=== PATIENT | male | born 1960 | race Caucasian/White ===

== ENCOUNTER 2017-02-14 14:18 | Observation (INO) | payer OTHER ==
[~2017-02-14] VITALS: Ht 185.4 cm; Wt 90.9 kg
[~2017-02-14 14:18] MED LIST: AMLO5TAB22 PO; LISI-360 PO; METF500 PO
[2017-02-14 14:24] VITALS: BP 170/84; PULSE 66; RESP 24; TEMP 98.3; O2SAT 98
[2017-02-14 14:29] VITALS: BP 137/96; PULSE 70; RESP 18; TEMP 99; O2SAT 98
[2017-02-14 14:37] VITALS: O2SAT 95
--- NOTE | 2017-02-14 14:38 | PD ---
HPI Chief Complaint: Neuro Symptoms/ Deficits Time Seen by Provider: 14:38 Travel History International Travel<30 days: No Contact w/Intl Traveler<30days: No Traveled to known affect area: No History of Present Illness HPI 56-year-old male with a history of hypertension and diabetes presents to the emergency department for evaluation of dizziness, generalized weakness, vision loss and gait instability. Patient states that his symptoms began about 3 weeks ago with dizziness. States that his dizziness has been constant but worsening over the last 3 weeks. States that over the last 4-5 days he has had vision loss in the right eye, states that he sees only white and fuzzy outlines in the right eye. States that over the last 3 days he's had gait instability and loss of sensation all over. States he put his hand under very hot water several days ago and was unaware until his partner told him so. He denies any chest pain, shortness of breath, difficulty breathing, nausea, vomiting, diarrhea, abdominal pain, swelling the extremities. Denies alcohol use. States he smokes marijuana occasionally. Denies any other drug use. Denies any recent head trauma. No other complaints. PFSH Past Medical History Diabetes: Yes Patient Takes Glucophage: Yes Past Surgical History AICD: No Joint Replacement: No Oral Surgery: Yes (TONSILECTOMY) Pacemaker: No Social History Alcohol Use: No Tobacco Use: No Substance Use: No Allergies-Medications (Allergen,Severity, Reaction): Coded Allergies: No Known Allergies (Unverified , 02/14/17) Reported Meds & Prescriptions Reported Meds & Active Scripts Active Reported Metformin (Metformin HCl) 500 Mg Tab 500 Mg PO DAILY With a meal Lisinopril 10 Mg Tab 10 Mg PO DAILY Amlodipine (Amlodipine Besylate) 5 Mg Tab 5 Mg PO DAILY Review of Systems Except as stated in HPI: all other systems reviewed are Neg Physical Exam Narrative GENERAL: Well-nourished and well-developed pleasant patient in no acute distress. Appears anxious and is tearful. SKIN: Warm and dry. HEAD: Normocephalic and atraumatic. No facial droop. EYES: Vision decreased in right eye. No injection, drainage, or hyphema noted. PERRLA. EOMI. ENT: No nasal drainage noted. Oropharynx is clear. NECK: Supple and the trachea is midline. CARDIOVASCULAR: Regular rate and rhythm. RESPIRATORY: Breath sounds are equal bilaterally with no accessory muscle use, wheezing, rhonchi, or crackles. GASTROINTESTINAL: Abdomen is soft, non-tender, and nondistended. MUSCULOSKELETAL: No obvious deformities, swelling, cyanosis, or ecchymosis is present throughout the upper and lower extremities. Patient has full range of motion without any signs of neurovascular compromise. NEUROLOGICAL: Awake, alert, and oriented. Normal speech. Ataxia noted with abnormal heel to payne and finger to nose testing. Worse on the left than right. Cranial nerves are grossly intact. Data Data Last Documented VS Vital Signs Date Time Temp Pulse Resp B/P Pulse Ox O2 Delivery O2 Flow Rate FiO2 02/14/17 17:16 54 16 121/86 97 Room Air 02/14/17 14:29 99.0 Orders Electrocardiogram (02/14/17 14:32) Complete Blood Count With Diff (02/14/17 14:32) Comprehensive Metabolic Panel (02/14/17 14:32) Prothrombin Time / Inr (Pt) (02/14/17 14:32) Act Partial Throm Time (Ptt) (02/14/17 14:32) Thyroid Stimulating Hormone (02/14/17 14:32) Urinalysis - C+S If Indicated (02/14/17 14:32) Chest, Single Ap (02/14/17 14:32) Ct Brain W/O Iv Contrast(Rout) (02/14/17 14:32) Blood Glucose (02/14/17 14:32) Ecg Monitoring (02/14/17 14:32) Iv Access Insert/Monitor (02/14/17 14:32) Oximetry (02/14/17 14:32) Sodium Chloride 0.9% Flush (Ns Flush) (02/14/17 14:45) Mri Brain W/O Contrast (02/14/17 14:48) Diet 1800 Ada Cons Carb (02/14/17 Dinner) Diet Heart Healthy (02/14/17 Dinner) Vital Signs (Adult) FRANCISCO JAVIER.Q4H (02/14/17 17:54) Neuro Checks . ORDERED (02/14/17 17:54) ^ Fall Precautions (02/14/17 17:54) Consult Pt Eval & Treat (02/14/17 17:54) Blood Glucose Goal (Criteria) (02/14/17 17:54) Hypoglycemia 70 Mg/Dl Or < (02/14/17 17:54) Notify Dr: Other (02/14/17 17:54) Dextrose 50% In Ivan (Vial) Inj (D50w (Vi (02/14/17 18:00) Glucagon Inj (Glucagon Inj) (02/14/17 18:00) Insulin Aspart Supplemtl Scale (Novolog (02/14/17 21:00) Admit Order (Ed Use Only) (02/14/17 17:54) Labs Laboratory Tests Test 02/14/17 02/14/17 14:45 17:22 White Blood Count 8.3 TH/MM3 Red Blood Count 4.97 MIL/MM3 Hemoglobin 16.5 GM/DL Hematocrit 49.2 % Mean Corpuscular Volume 99.1 FL Mean Corpuscular Hemoglobin 33.3 PG Mean Corpuscular Hemoglobin 33.6 % Concent Red Cell Distribution Width 12.7 % Platelet Count 185 TH/MM3 Mean Platelet Volume 9.6 FL Neutrophils (%) (Auto) 65.9 % Lymphocytes (%) (Auto) 23.5 % Monocytes (%) (Auto) 8.2 % Eosinophils (%) (Auto) 1.7 % Basophils (%) (Auto) 0.7 % Neutrophils # (Auto) 5.4 TH/MM3 Lymphocytes # (Auto) 1.9 TH/MM3 Monocytes # (Auto) 0.7 TH/MM3 Eosinophils # (Auto) 0.1 TH/MM3 Basophils # (Auto) 0.1 TH/MM3 CBC Comment DIFF FINAL Differential Comment Prothrombin Time 10.4 SEC Prothromb Time International 0.9 RATIO Ratio Activated Partial 27.4 SEC Thromboplast Time Sodium Level 138 MEQ/L Potassium Level 4.2 MEQ/L Chloride Level 102 MEQ/L Carbon Dioxide Level 25.2 MEQ/L Anion Gap 11 MEQ/L Blood Urea Nitrogen 17 MG/DL Creatinine 1.27 MG/DL Estimat Glomerular Filtration 58 ML/MIN Rate Random Glucose 117 MG/DL Calcium Level 9.3 MG/DL Total Bilirubin 0.5 MG/DL Aspartate Amino Transf 23 U/L (AST/SGOT) Alanine Aminotransferase 29 U/L (ALT/SGPT) Alkaline Phosphatase 85 U/L Total Protein 8.0 GM/DL Albumin 4.3 GM/DL Thyroid Stimulating Hormone 2.260 uIU/ML 3rd Gen Urine Color YELLOW Urine Turbidity CLEAR Urine pH 5.0 Urine Specific [place] 1.022 Urine Protein NEG mg/dL Urine Glucose (UA) NEG mg/dL Urine Ketones NEG mg/dL Urine Occult Blood NEG Urine Nitrite NEG Urine Bilirubin NEG Urine Urobilinogen LESS THAN 2.0 MG/DL Urine Leukocyte Esterase NEG Urine WBC LESS THAN 1 /hpf Urine Mucus FEW /lpf Microscopic Urinalysis Comment CULT NOT INDICATED MDM Medical Decision Making Medical Screen Exam Complete: Yes Emergency Medical Condition: Yes Differential Diagnosis CVA versus TIA versus MS versus electrolyte abnormality versus conversion disorder versus other Narrative Course 56-year-old male presents to the emergency department for evaluation of dizziness, ataxia, right eye vision loss, paresthesias worsening over the last several weeks. Patient is afebrile, vital signs are stable. He does have ataxia and is reporting sensory loss all over. IV access is obtained, labs have been drawn and sent. Patient is placed on cardiac telemetry and pulse oximetry monitoring. Head CT has been ordered and is pending. EKG shows normal sinus rhythm with no acute ST elevations or depressions. CBC is unremarkable. CMP is unremarkable. Coags are unremarkable. Head CT is negative. Chest x-ray shows mild elevation of left hemidiaphragm but is otherwise unremarkable. MRI of the brain shows no findings to indicate acute cortical infarct identified. Scattered areas of increased T2 signal in the white matter consistent with mild microvascular ischemic demyelinating change. There's no findings on imaging or laboratory values to explain the patient's symptoms. He is dizzy and ataxic and therefore will be admitted to medicine service under observation or neurology consultation. Discussed this with the patient and family verbalize understanding and are in agreement with treatment plan. I discussed the case with my attending physician Dr. Shields who is aware of the patients history, physical examination findings, and treatment plan. Physician Communication Physician Communication I spoke with Dr. Gilbert [facility] who agrees to admit the patient to observation. Diagnosis Primary Impression: Dizziness Additional Impressions: Ataxia Paresthesia Admitting Information Admitting Physician Requests: Observation Nya Lozano Feb 14, 2017 14:38
[2017-02-14] MEDS ORDERED: SODIUM CHLORIDE 0.9% FLUSH 5 ML FLUSH IV FLUSH PRN (14:45)
[2017-02-14] MEDS ORDERED: METF500T PO (15:18)
[2017-02-14] MEDS ORDERED: LISI10TA3 PO (15:18)
[2017-02-14] MEDS ORDERED: AMLO5TAB2 PO (15:18)
[2017-02-14 15:37] LABS: AUTOMATED NEUTROPHIL # 5.4 TH/MM3 (1.8-7.7); BASOPHIL # 0.1 TH/MM3 (0-0.2); BASOPHIL % 0.7 % (0.0-2.0); EOSINOPHIL # 0.1 TH/MM3 (0-0.4); EOSINOPHIL % 1.7 % (0.0-4.0); HEMATOCRIT 49.2 % (39.0-51.0); HEMO FLAGS DIFF FINAL; LYMPH % 23.5 % (9.0-44.0); LYMPHOCYTE # 1.9 TH/MM3 (1.0-4.8); MEAN CELL VOLUME 99.1 FL (80.0-100.0); MEAN CORPUSCULAR HEMOGLOBIN 33.3 PG (27.0-34.0); MEAN CORPUSCULAR HGB CONC 33.6 % (32.0-36.0); MONO % 8.2 % (0.0-8.0); NEUT % 65.9 % (16.0-70.0); PLATELET COUNT 185 TH/MM3 (150-450); RED BLOOD COUNT 4.97 MIL/MM3 (4.50-5.90); RED CELL DISTRIBUTION WIDTH 12.7 % (11.6-17.2); WHITE BLOOD COUNT 8.3 TH/MM3 (4.0-11.0)
[2017-02-14 15:46] LABS: APTT (PATIENT) 27.4 SEC (24.3-30.1); INTERNATIONAL NORMALIZED RATIO 0.9 RATIO; PROTHROMBIN TIME - PATIENT 10.4 SEC (9.8-11.6)
[2017-02-14 16:10] LABS: ANION GAP 11 MEQ/L (5-15); AST (GOT) 23 U/L (15-37); BICARBONATE 25.2 MEQ/L (21.0-32.0); BLOOD UREA NITROGEN 17 MG/DL (7-18); CHLORIDE 102 MEQ/L (98-107); GLOMERULAR FILTRATION RATE 58 ML/MIN (>89); SODIUM (NA) 138 MEQ/L (136-145)
[2017-02-14 16:16] LABS: ALKALINE PHOSPHATASE 85 U/L (45-117); ALT (GPT) 29 U/L (12-78); TOTAL BILIRUBIN ADULT 0.5 MG/DL (0.2-1.0)
--- NOTE | 2017-02-14 16:27 | RADRPT ---
EXAM DATE/TIME: 02/14/2017 15:51 [facility] COMPARISON: No previous studies available for comparison. INDICATIONS : Dizziness X 3 weeks. RADIATION DOSE: 49.26 CTDIvol (mGy) MEDICAL HISTORY : Hypertension. Diabetes mellitus type 2. SURGICAL HISTORY : None. ENCOUNTER: Initial ACUITY: 3 weeks PAIN SCALE: 0/10 LOCATION: cranial TECHNIQUE: Multiple contiguous axial images were obtained of the head. Using automated exposure control and adj ustment of the mA and/or kV according to patient size, radiation dose was kept as low as reasonably a chievable to obtain optimal diagnostic quality images. FINDINGS: CEREBRUM: The ventricles are normal for age. No evidence of midline shift, mass lesion, hemorrhage or acute in farction. No extra-axial fluid collections are seen. POSTERIOR FOSSA: The cerebellum and brainstem are intact. The 4th ventricle is midline. The cerebellopontine angle i s unremarkable. EXTRACRANIAL: The visualized portion of the orbits is intact. SKULL: The calvaria is intact. No evidence of skull fracture. CONCLUSION: 1. No acute intracranial abnormality identified. Waldemar Proctor MD on February 14, 2017 at 16:24 Board Certified Radiologist. This report was verified electronically.
[2017-02-14 16:30] LABS: POTASSIUM 4.2 MEQ/L (3.5-5.1)
--- NOTE | 2017-02-14 16:46 | RADRPT ---
EXAM DATE/TIME: 02/14/2017 14:42 [facility] COMPARISON: No previous studies available for comparison. INDICATIONS : General weakness. MEDICAL HISTORY : Hypertension. Diabetes mellitus type II. SURGICAL HISTORY : None. ENCOUNTER: Initial ACUITY: 2 weeks PAIN SCORE: 0/10 LOCATION: Bilateral chest FINDINGS: A single view of the chest demonstrates the lungs to be symmetrically aerated without evidence of mas s, infiltrate or effusion. Mild elevation of the left hemidiaphragm. The cardiomediastinal contours a re unremarkable. Osseous structures are intact. CONCLUSION: 1. Mild elevation of the left hemidiaphragm. 2. Otherwise, no acute cardiopulmonary disease. Denny Brock MD on February 14, 2017 at 16:43 Board Certified Radiologist. This report was verified electronically.
[2017-02-14 17:16] VITALS: BP 121/86; PULSE 54; RESP 16; O2SAT 97
--- NOTE | 2017-02-14 17:18 | RADRPT ---
EXAM DATE/TIME: 02/14/2017 16:06 [facility] COMPARISON: No previous studies available for comparison. INDICATIONS : CVA. Generalized weakness and unsteady gait. MEDICAL HISTORY : Reynauds disease. SURGICAL HISTORY : Ankle surgery. ENCOUNTER: Initial ACUITY: 2 day PAIN SCORE: 3/10 LOCATION: head TECHNIQUE: Multiplanar, multisequence MRI of the brain was performed without contrast. FINDINGS: CEREBRUM: The ventricles are normal for age. No evidence of midline shift, mass lesion, hemorrhage or acute in farction. No extraaxial fluid collections are seen. The pituitary gland and suprasellar cistern are normal in configuration. WHITE MATTER: No significant signal abnormalities are seen in the white matter. POSTERIOR FOSSA: The cerebellum and brainstem are intact. The 4th ventricle is midline. The cerebellopontine angle is unremarkable. The cerebellar tonsils are normal in position. DIFFUSION IMAGING: No focal areas of restricted diffusion are seen. No evidence of acute infarction. EXTRACRANIAL: The visualized portions of the orbits and paranasal sinuses are unremarkable. CONCLUSION: 1. No findings to indicate acute cortical infarct identified. 2. Scattered areas of increased T2 signal in the white matter consistent with mild microvascular isch emic demyelinative change. Waldemar Proctor MD on February 14, 2017 at 17:13 Board Certified Radiologist. This report was verified electronically.
[2017-02-14 17:50] LABS: BLOOD, URINE NEG (NEG); COMMENT (UR) CULT NOT INDICATED; CULTURE IF INDICATED CULT NOT INDICATED; GLUCOSE,URINE NEG (NEG); KETONE, URINE NEG (NEG); MUCUS URINE FEW /lpf (OCC); NITRITE,URINE NEG (NEG); URINE COLOR YELLOW (YELLW/STRAW)
[2017-02-14] MEDS ORDERED: GLUCAGON 1 MG/ML VIAL OTHER PRN (18:00)
[2017-02-14] MEDS ORDERED: DEXTROSE 50% IN WATER 50 ML VIAL(D50) IV PRN (18:00)
[2017-02-14 20:31] VITALS: BP 118/70; PULSE 56; RESP 16; TEMP 98.2; O2SAT 94
[2017-02-14] MEDS: INSULIN ASPART SUPPLEMENTAL SCALE SQ SCH (22:23)
[2017-02-15] VITALS: BP 124/68; PULSE 67; RESP 18; TEMP 98.1; O2SAT 97
[2017-02-15 04:00] VITALS: BP 122/74; PULSE 74; RESP 18; TEMP 98; O2SAT 98
--- NOTE | 2017-02-15 04:33 | HHI.HP ---
HPI Service [facility] Primary Care Physician NEVILLE Deras Admission Diagnosis Dizziness, Ataxia, Paresthesias Diagnoses: Chief Complaint: paresthesias, ataxia, anosmia, ageusia Travel History International Travel<30 Days: No Contact w/Intl Traveler <30 Da: No Traveled to Known Affected Are: No History of Present Illness Written by Darya Jimenez, acting as scribe for Dr. Woodard on 02/15/17 at 04:32. Loss of sensation "over all body" - feels numb, loss of smell, loss of taste, 50 pound weight loss in 35 days, sense of imbalance, lethargy - slept for one day, tinnitus, speech feels "heavy", urination is difficult to start and duration of urination is short - unable to feel urination, denies diarrhea or constipation. Last BM 02/14/17 in a.m. Denies pain, dysphagia Blood glucose was 70 at PCPs office and she sent patient to ER PCP: NEVILLE Deras Denies any recent medication changes . Review of Systems Except as stated in HPI: all other systems reviewed are Neg Past Family Social History Past Medical History T2DM Hypertension Denies . Past Surgical History right ankle repair s/p fracture left ankle - "nodules" removed right retinal reattachment repair 06/2015 . Reported Medications Reported Meds & Active Scripts Active Reported Metformin (Metformin HCl) 500 Mg Tab 500 Mg PO DAILY With a meal Lisinopril 10 Mg Tab 10 Mg PO DAILY Amlodipine (Amlodipine Besylate) 5 Mg Tab 5 Mg PO DAILY . Allergies: Coded Allergies: No Known Allergies (Unverified , 02/14/17) Active Ordered Medications Current Medications IV Flush (NS Flush) 2 ml UNSCH PRN IV FLUSH FLUSH AFTER USING IV ACCESS; Start 02/14/17 at 14:45 Dextrose (D50w (Vial) Inj) 50 ml UNSCH PRN IV HYPOGLYCEMIA-SEE COMMENTS; Start 02/14/17 at 18:00 Glucagon (Glucagon Inj) 1 mg UNSCH PRN OTHER HYPOGLYCEMIA-SEE COMMENTS; Start 02/14/17 at 18:00 Insulin Aspart (NovoLOG SUPPLEMENTAL SCALE) 1 ACHS SLIDING SCALE SQ Last administered on 02/14/17t 22:23; Start 02/14/17 at 21:00 . Family History Sister age 42 - born with a "hole in her heart" Mother cervical CA Uncles from complications related to Parkinson's disease . Social History Tobacco: denies Alcohol: denies Illicit drugs: denies . Physical Exam Vital Signs Vital Signs Date Time Temp Pulse Resp B/P Pulse Ox O2 Delivery O2 Flow Rate FiO2 02/14/17 20:31 98.2 56 16 118/70 94 02/14/17 17:16 54 16 121/86 97 Room Air 02/14/17 14:37 95 Room Air 02/14/17 14:29 99.0 70 18 137/96 98 02/14/17 14:24 98.3 66 24 170/84 98 Room Air Physical Exam GENERAL: This is a well-nourished, well-developed patient, in no apparent distress. Flat affect. SKIN: No rashes, ecchymoses or lesions. Cool and dry. HEAD: Atraumatic. Normocephalic. EYES: No scleral icterus. No injection or drainage. ENT: Nose without bleeding, purulent drainage. NECK: Trachea midline. No JVD or lymphadenopathy. CARDIOVASCULAR: Regular rate and rhythm without murmurs, gallops, or rubs. RESPIRATORY: Clear to auscultation. Breath sounds equal bilaterally. No wheezes , rales, or rhonchi. GASTROINTESTINAL: Abdomen soft, non-tender, nondistended. No guarding. MUSCULOSKELETAL: Extremities without clubbing, cyanosis, or edema. No calf tenderness. NEUROLOGICAL: Awake and alert. Generalized weakness in all extremities2+-3/5. Masked faces. Speech is slow. . Laboratory Laboratory Tests Test 02/14/17 02/14/17 14:45 17:22 White Blood Count 8.3 Red Blood Count 4.97 Hemoglobin 16.5 Hematocrit 49.2 Mean Corpuscular Volume 99.1 Mean Corpuscular Hemoglobin 33.3 Mean Corpuscular Hemoglobin 33.6 Concent Red Cell Distribution Width 12.7 Platelet Count 185 Mean Platelet Volume 9.6 Neutrophils (%) (Auto) 65.9 Lymphocytes (%) (Auto) 23.5 Monocytes (%) (Auto) 8.2 Eosinophils (%) (Auto) 1.7 Basophils (%) (Auto) 0.7 Neutrophils # (Auto) 5.4 Lymphocytes # (Auto) 1.9 Monocytes # (Auto) 0.7 Eosinophils # (Auto) 0.1 Basophils # (Auto) 0.1 CBC Comment DIFF FINAL Differential Comment Prothrombin Time 10.4 Prothromb Time International 0.9 Ratio Activated Partial 27.4 Thromboplast Time Sodium Level 138 Potassium Level 4.2 Chloride Level 102 Carbon Dioxide Level 25.2 Anion Gap 11 Blood Urea Nitrogen 17 Creatinine 1.27 Estimat Glomerular Filtration 58 Rate Random Glucose 117 Calcium Level 9.3 Total Bilirubin 0.5 Aspartate Amino Transf 23 (AST/SGOT) Alanine Aminotransferase 29 (ALT/SGPT) Alkaline Phosphatase 85 Total Protein 8.0 Albumin 4.3 Thyroid Stimulating Hormone 2.260 3rd Gen Urine Color YELLOW Urine Turbidity CLEAR Urine pH 5.0 Urine Specific [place] 1.022 Urine Protein NEG Urine Glucose (UA) NEG Urine Ketones NEG Urine Occult Blood NEG Urine Nitrite NEG Urine Bilirubin NEG Urine Urobilinogen LESS THAN 2.0 Urine Leukocyte Esterase NEG Urine WBC LESS THAN 1 Urine Mucus FEW Microscopic Urinalysis Comment CULT NOT INDICATED Result Diagram: 02/14/17 1445 02/14/17 1445 Imaging Last Impressions Brain MRI 02/14/17 1448 Signed Impressions: Service Date/Time: Tuesday, February 14, 2017 16:06 - CONCLUSION: 1. No findings to indicate acute cortical infarct identified. 2. Scattered areas of increased T2 signal in the white matter consistent with mild microvascular ischemic demyelinative change. Waldemar Proctor MD Head CT 02/14/17 1432 Signed Impressions: Service Date/Time: Tuesday, February 14, 2017 15:51 - CONCLUSION: 1. No acute intracranial abnormality identified. Waldemar Proctor MD Chest X-Ray 02/14/17 1432 Signed Impressions: Service Date/Time: Tuesday, February 14, 2017 14:42 - CONCLUSION: 1. Mild elevation of the left hemidiaphragm. 2. Otherwise, no acute cardiopulmonary disease. Denny Brock MD . Assessment and Plan Problem List: (1) Ageusia ICD Code: R43.2 Status: Acute (2) Anosmia ICD Code: R43.0 Status: Acute (3) Paresthesia ICD Code: R20.2 Status: Acute (4) Ataxia ICD Code: R27.0 Status: Acute (5) Abnormal brain MRI ICD Code: R90.89 Status: Acute (6) Type 2 diabetes mellitus ICD Code: E11.9 Status: Chronic Assessment and Plan Mr. Mcclendon is a 56 year-old male with a 35 day period of progressively worsening neurological deficits who is admitted for neurological evaluation. Neurological deficits: ageusia, anosmia, paresthesias, ataxia with abnormal brain MRI - Consult neurology - appreciate assistance - Brain MRI shows scattered areas of increased T2 signal in the white matter consistent with mild microvascular ischemic demyelinative change - Neuro checks q4h T2DM - Accu-checks AC and HS with low dose Novolog sliding scale coverage - hypoglycemia protocol - hold metformin - monitor trends in blood glucose readings and adjust treatments as indicated DVT prophylaxis - SCDs and TEDs . Discussed Condition With ER physician, RN, and patient . Darya Jimenez Feb 15, 2017 04:33 Darya Jimenez Feb 15, 2017 04:33
[2017-02-15] MEDS: INSULIN ASPART SUPPLEMENTAL SCALE SQ SCH ×4 (07:00→21:00)
[2017-02-15 10:12] LABS: AMPHETAMINE, URINE NEG (NEG); BARBITURATES, URINE NEG (NEG); COCAINE, URINE NEG (NEG)
[2017-02-15 10:45] VITALS: BP_SYST 108; BP_SYST 114; BP_SYST 117; BP_DIAS 73; BP_DIAS 75; BP_DIAS 78; PULSE 68; RESP 18; TEMP 97.8; O2SAT 95
--- NOTE | 2017-02-15 10:49 | MB ---
cc: ABBEY HARTMAN DATE OF CONSULTATION 02/15/2017 REASON FOR CONSULTATION This is a 56-year-old right-handed man with a history of hypertension, non-insulin dependent diabetes, hypercholesterolemia. He does not take an aspirin a day. No recent changes in his meds. He states over the last month he has lost 50 pounds and he feels like he has had some vertigo and dizziness for the last two weeks. He feels like he cannot feel his hands or feet and he has had some tinnitus. He has had some depression. No chest pain or palpitations. No major headache. He feels like his thinking is off. No pain in the legs. Feels like he is generally weak. He had lost his regular job a few months ago. He has been working in sales for [employer]. SOCIAL HISTORY Not a smoker or a drinker, lives with his girlfriend. FAMILY HISTORY Positive for cancer, negative for seizure or stroke. Positive for some heart problems in a sister, Parkinson's season in an uncle. MEDICATIONS He does not take an aspirin a day. He is on: 1. Amlodipine 2. Lisinopril 3. Metformin PAST MEDICAL HISTORY He has a past medical history of: 1. Right retinal reattachment repair 2014 2. Status post fracture right ankle. ALLERGIES NO KNOWN DRUG ALLERGIES. PHYSICAL EXAM On exam afebrile, 74, 18, 122/74. NECK: There are no carotid or vertebral bruits. HEART: Regular rhythm. I did not detect a murmur. NEUROLOGIC: Pupils are equal. Visual villanueva are full. Extraocular intact without nystagmus. Face is symmetric with normal sensation. Tongue was midline. There was no drift. He had normal strength in the upper and lower extremities bilaterally including deltoid, triceps, finger extensors FTI, APB, iliopsoas, hamstring, quadriceps, tibialis anterior, foot inversion/eversion, toe extensors and flexors. He is able to stand on his toes well. DTRs are 2+ symmetric throughout and normal on the knee jerks bilaterally. There is no ankle clonus. Tone is normal throughout. Toes are downgoing bilaterally. Pinprick is absent to the knees bilaterally. Vibratory sense is intact, but diminished in the toes, but intact in the hands and head. Pinprick is intact in the hands in the median, ulnar and radial nerve distribution bilaterally, intact in the face bilaterally. He is not ataxic on [id number] or [id number]. Gait is steady. Hallpike maneuver negative bilaterally. He seems a little bit nervous. He tells me it feels like his mind is not working well, but he knew the year, the month, did not know the day of the week. Calculations are intact. Speech is fluent. He is not aphasic. LABORATORY DATA CBC is normal. Basic metabolic profile normal. Glucose 117, LFTs, albumin TSH, UA, coag's normal. MRI of the brain is normal. No infarction noted. Chest x-ray was negative. CT scan of the brain normal. Mastoids I thought looked fine on the MRI. IMPRESSION He does have a likely diabetic neuropathy with numbness below the knees bilaterally. Otherwise, I thought he looked well neurologically. He may have a mild peripheral vestibulopathy. We will have them check orthostatics here, check some additional blood work. He is trying to get patient assistance here. He has no insurance. I note he did have a bit of an escutcheon on his abdomen consistent with neuropathy also. At times we do see in diabetes sudden weight loss and such things as a diabetic polyradiculopathy, however, it does not really sound like he has that. He has had no pain in his legs, i.e. no diabetic amyotrophy is noted on exam. What I have recommended is to check a standing blood pressure, check some additional blood work, overall I thought he looked fairly well neurologically. He would benefit for an EMG outpatient and do a urine drug screen. He does have some depression. How much that could be in involved in this is unclear. I am going to start him on an antidepressants. He feels like he is about a 4/10 depressed and feels like he is in a little bit of a fog cognitively. We can also check an EEG on him. As far as his weight loss goes, a CT of the chest and abdomen could be considered. I would defer to the med team on that and make sure he does not have any underlying cancer. Overall, I though he looked fairly well neurologically. We will also check an MRA of his carotids with the history of vertigo to make sure there is no vertebrobasilar disease and an MRI of his C-spine with his complaints of feeling numb from the neck down, although I think it is probably unlikely there is any cervical myelopathy going on. His exam looked more just at the straight forehead diabetic neuropathy. MD ETHAN Rodgers/RAUL /8:16 AM /10:29 AM
[2017-02-15] MEDS ORDERED: GADODIAMIDE PF 287 MG/ML 20 ML VIAL (for RAD MRI) IV ONE (11:27)
[2017-02-15] MEDS: ESCITALOPRAM OXALATE 10 MG TAB PO SCH (11:32)
--- NOTE | 2017-02-15 12:51 | RADRPT ---
EXAM DATE/TIME: 02/15/2017 10:55 [facility] COMPARISON: No previous studies available for comparison. INDICATIONS : Myelopathy. MEDICAL HISTORY : Hypertension. Diabetes mellitus type 2. Reynauds disease. SURGICAL HISTORY : Ankle. ENCOUNTER: Subsequent ACUITY: 1 day PAIN SCORE: 0/10 LOCATION: Neck. TECHNIQUE: Multiplanar, multisequence MRI examination of the cervical spine was performed. FINDINGS: Alignment: Craniocervical and cervical vertebral body alignment are intact. Osseous structures and facet joints: Vertebral body height is well-maintained. There is no evidence of bone marrow edema or compression de formity. Mild facet arthropathy is identified in the lower cervical spine at C6-7 and C7-T1. Intervertebral disc spaces: Degenerative disc disease ranging from mild to moderate in severity is noted. C2-3 and C3-4: Unremarkable. C4-5: Mild degenerative disc disease with minimal posterior disc osteophyte complex. There is no sign ificant epidural or neural foraminal encroachment. C5-6: Moderate degenerative disc disease with broad-based disc osteophyte complex. There is mild ante rior neural effacement which abuts and slightly effaces the anterior surface of the spinal cord. Mode rate right foraminal encroachment is noted. C6-7: Moderate degenerative disc disease with mild broad-based disc osteophyte complex. There is no e vidence of significant epidural mass effect of foraminal encroachment. C7-T1: Mild degenerative disease with small central disc bulge Neurologic structures: Cervical spinal cord is normal in signal intensity and caliber. There is no evidence of significant n erve root compression. CONCLUSION: Degenerative disc disease with moderate changes at C5-6 and C6-7 as described. No acute bony abnormalities or soft extrusion. Normal appearing spinal cord without significant compression. No evidence of significant nerve root compression. Silvio Bazan MD on February 15, 2017 at 12:40 Board Certified Radiologist. This report was verified electronically.
--- NOTE | 2017-02-15 12:55 | RADRPT ---
EXAM DATE/TIME: 02/15/2017 10:55 [facility] COMPARISON: MRI BRAIN W/O CONTRAST, February 14, 2017, 16:06. INDICATIONS : Stroke. Dizziness, unbalanced and confusion. CONTRAST: 20 cc Omniscan (gadodiamide) IV MEDICAL HISTORY : Hypertension. Diabetes mellitus type 2. Reynauds disease. SURGICAL HISTORY : Ankle. ENCOUNTER: Subsequent ACUITY: 1 day PAIN SCORE: 0/10 LOCATION: Head. Percent stenosis is calculated using the diameter of the stenotic region over the diameter of the nor mal distal internal carotid artery. TECHNIQUE: Bolus infused MRA of the extracranial circulation was performed using a neurovascular coil. Post pro cessing was performed including rotating subvolume maximum intensity projections of each carotid ranjan ry, rotating full volume maximum intensity projections of both carotid arteries, sagittal and coronal sliding thin slab reformations of each carotid artery, and left oblique sliding thin slab reformatio n through the aortic arch to include the origin of the arch branch vessels. FINDINGS: AORTIC ARCH: There is a three vessel origin of the great vessels from the aorta. No evidence of ostial narrowing. RIGHT CAROTID: The common carotid artery is intact. The carotid bulb has a normal configuration without ulceration or narrowing. The internal carotid artery lumen is smooth without stenosis. The external carotid ar freddy is intact. LEFT CAROTID: The common carotid artery is intact. The carotid bulb has a normal configuration without ulceration or narrowing. The internal carotid artery lumen is smooth without stenosis. The external carotid ar freddy is intact. VERTEBRALS: The left vertebral is considerably smaller than the right. No stenotic lesions are identified. CONCLUSION: 1. Normal examination. Waldemar Proctor MD on February 15, 2017 at 12:52 Board Certified Radiologist. This report was verified electronically.
[2017-02-15 13:52] LABS: ALT (GPT) 27 U/L (12-78); RHEUMATOID FACTOR TRIGGER LESS THAN 10.0 IU/ML (0.0-14.9)
[2017-02-15 14:18] LABS: AST (GOT) 13 U/L (15-37); LDL CHOLESTEROL 187 MG/DL (0-99); TOTAL PROTEIN SPE 8.2 GM/DL (6.0-7.6)
[2017-02-15 14:20] LABS: CREATINE KINASE 54 U/L (39-308)
--- NOTE | 2017-02-15 15:21 | EKG ---
Date Performed: 02/14/2017 Time Performed: 14:41:49 PTAGE: 56 years EKG: Sinus rhythm NORMAL ECG Compared to prior tracing no significant change PREVIOUS TRACING : 06/03/2015 09.46 DOCTOR: Jean-Pierre Dela Cruz Interpretating Date/Time 02/15/2017 15:21:03
[2017-02-15 16:36] VITALS: BP 121/78; PULSE 60; RESP 18; TEMP 97.7; O2SAT 95
[2017-02-15 16:39] VITALS: BP_SYST 105; BP_SYST 108; BP_SYST 121; BP_DIAS 71; BP_DIAS 74; BP_DIAS 78
--- NOTE | 2017-02-15 17:09 | MG ---
cc: VJ AKINS M.D. Lab No: [id number] Date: Age: 56 Sex: M Race: REFERRING: Kathleen. ROOM: [facility]. With photic stimulation. Awake drowsy study. MRI shows scattered areas of increased T2 signal in the white matter consistent with mild microvascular change admitted for loss of sensation, whole body feels numb, loss of smell and taste, 50-pound weight loss, imbalance. Lexapro only medication. DESCRIPTION OF THE RECORDING: The patient has a background rhythm of 9 Hz, 20-40 microvolts. Fairly symmetrical background. Quite a bit of eye movement artifact. Photic stimulation does elicit a mild posterior driving response. EKG does look to be sinus most of the time. Occasional PVC. IMPRESSION: Overall normal-appearing EEG without any epileptiform features in the recording. Clinical correlation. MD ABY Velasquez/MCKAY /2:57 PM /5:08 PM
[2017-02-15] MEDS ORDERED: ATORVASTATIN 80 MG TAB PO SCH (21:00)
[2017-02-15 21:34] VITALS: BP_SYST 123; BP_SYST 138; BP_DIAS 78; BP_DIAS 83; BP_DIAS 84; PULSE 56; RESP 18; TEMP 98.2; O2SAT 96
[2017-02-16 04:06] VITALS: BP 125/70; PULSE 60; RESP 18; TEMP 97.9; O2SAT 96
[2017-02-16] MEDS: INSULIN ASPART SUPPLEMENTAL SCALE SQ SCH ×2 (06:47→12:00)
[2017-02-16 07:48] VITALS: BP_SYST 121; BP_SYST 122; BP_SYST 124; BP_DIAS 73; BP_DIAS 74; BP_DIAS 84; PULSE 61; RESP 18; TEMP 98; O2SAT 95
[2017-02-16 08:02] LABS: AUTOMATED NEUTROPHIL # 6.5 TH/MM3 (1.8-7.7); BASOPHIL # 0.1 TH/MM3 (0-0.2); BASOPHIL % 0.6 % (0.0-2.0); EOSINOPHIL # 0.2 TH/MM3 (0-0.4); EOSINOPHIL % 1.8 % (0.0-4.0); HEMATOCRIT 46.5 % (39.0-51.0); HEMO FLAGS DIFF FINAL; LYMPH % 17.9 % (9.0-44.0); LYMPHOCYTE # 1.6 TH/MM3 (1.0-4.8); MEAN CELL VOLUME 96.6 FL (80.0-100.0); MEAN CORPUSCULAR HEMOGLOBIN 33.5 PG (27.0-34.0); MEAN CORPUSCULAR HGB CONC 34.6 % (32.0-36.0); MONO % 7.7 % (0.0-8.0); PLATELET COUNT 173 TH/MM3 (150-450); RED BLOOD COUNT 4.81 MIL/MM3 (4.50-5.90); RED CELL DISTRIBUTION WIDTH 12.6 % (11.6-17.2)
[2017-02-16 08:26] LABS: BICARBONATE 30.8 MEQ/L (21.0-32.0); POTASSIUM 4.1 MEQ/L (3.5-5.1)
--- NOTE | 2017-02-16 08:47 | HHI.PR ---
Subjective Remarks Follow-up for multiple neuro complaints. The patient states that he feels numb all over. He complains of dizziness like the room is spinning and unsteadiness. He complains of dizziness both with lying still and with standing. The patient is currently unable to ambulate well. He denies any pain. He reports a 50 pound weight loss from 250 down to 200 over the past month. He reports normal intake and normal stools. 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 He is happy that neurological workup so far is been relatively unremarkable, and is willing to do anything to feel better. He would like to do malignancy workup with weight loss. He is agreeable to psychiatric evaluation as well. The patient does use marijuana prior to bedtime for sleep. Objective Vitals Vital Signs Date Time Temp Pulse Resp B/P Pulse Ox O2 Delivery O2 Flow Rate FiO2 02/16/17 07:48 98.0 61 18 122/73 95 121/74 124/84 02/16/17 04:06 97.9 60 18 125/70 96 02/15/17 21:34 98.2 56 18 123/78 96 123/84 138/83 02/15/17 16:39 121/78 105/71 108/74 02/15/17 16:36 97.7 60 18 121/78 95 02/15/17 10:45 97.8 68 18 117/73 95 108/78 114/75 Result Diagram: 02/16/17 0739 02/16/17 0739 Imaging Last Impressions Neck Magnetic Resonance Angiography 02/15/17 0820 Signed Impressions: Service Date/Time: February 10:55 - CONCLUSION: 1. Normal examination. Waldemar Proctor MD Cervical Spine MRI 02/15/17 0820 Signed Impressions: Service Date/Time: February 10:55 - CONCLUSION: Degenerative disc disease with moderate changes at C5-6 and C6-7 as described. No acute bony abnormalities or soft extrusion. Normal appearing spinal cord without significant compression. No evidence of significant nerve root compression. Silvio Bazan MD Brain MRI 02/14/17 1448 Signed Impressions: Service Date/Time: Tuesday, February 14, 2017 16:06 - CONCLUSION: 1. No findings to indicate acute cortical infarct identified. 2. Scattered areas of increased T2 signal in the white matter consistent with mild microvascular ischemic demyelinative change. Waldemar Proctor MD Head CT 02/14/17 1432 Signed Impressions: Service Date/Time: Tuesday, February 14, 2017 15:51 - CONCLUSION: 1. No acute intracranial abnormality identified. Waldemar Proctor MD Chest X-Ray 02/14/172 Signed Impressions: Service Date/Time: Tuesday, February 14, 2017 14:42 - CONCLUSION: 1. Mild elevation of the left hemidiaphragm. 2. Otherwise, no acute cardiopulmonary disease. Denny Brock MD Objective Remarks GENERAL: Well-developed well-nourished. In no acute distress. SKIN: Warm and dry. No lesions noted. HEENT: Normocephalic. Pupils equal and round. Mucous membranes pink and moist. CARDIOVASCULAR: Regular rate and rhythm. No murmur appreciated. RESPIRATORY: No accessory muscle use. Clear to auscultation. Breath sounds equal bilaterally. GASTROINTESTINAL: Abdomen soft, non-tender, nondistended. Bowel sounds x4. MUSCULOSKELETAL: No obvious deformities. No clubbing or cyanosis. No edema. NEUROLOGICAL: Awake and alert. Moves upper and lower extremities spontaneously well when not being tested, although poor effort on strength testing. Normal speech. PSYCHIATRIC: Anxious mood and overwhelmed affect; insight and judgment normal. A/P Problem List: (1) [place] ICD Code: R43.2 Status: Acute (2) Anosmia ICD Code: R43.0 Status: Acute (3) Paresthesia ICD Code: R20.2 Status: Acute (4) Ataxia ICD Code: R27.0 Status: Acute (5) Abnormal brain MRI ICD Code: R90.89 Status: Acute (6) Type 2 diabetes mellitus ICD Code: E11.9 Status: Chronic Assessment and Plan 56-year-old male with past medical history of DM and HTN who presented for multiple neurologic complaints and weight loss Multiple neurologic deficits: Including paresthesias, dizziness, ataxia and gait imbalance. Possibly secondary to somatization with feelings of being overwhelmed and recent life stressors. Reviewed: Brain MRI with no acute process. Neck MRA normal. C-spine MRI with moderate degenerative changes with no significant spinal cord or nerve root compression. Afebrile with no leukocytosis. Non-orthostatic. EEG with essentially normal appearance. 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 Possibly secondary to depression, although will rule out malignancy. Check tumor markers and CT chest, abdomen, and pelvis. Diabetes mellitus: Well controlled. Metformin on hold currently. Monitor Accu- Cheks. SSI coverage. Hypertension: Currently well controlled off of amlodipine and lisinopril, continue to hold. Monitor. Hyperlipidemia: Lipid panel reviewed with elevated triglycerides and LDL. Started on statin. DVT prophylaxis: SCDs Discharge Planning Discharge planning when patient is able to better ambulate safely. 1415 patient reassessed, he reports he has been ambulating much better today unassisted. Tolerating diet. Clear by neurology and psychiatry for discharge. Regarding weight loss, malignancy workup including tumor markers and CT chest , abdomen, and pelvis have been negative. Discussed with Dr. Barger, no further inpatient workup needed at this time. Recommended patient follow-up with PCP for continued management of symptoms, and patient is agreeable. Discharge home today. Dayton Khanna Feb 16, 2017 08:47
--- NOTE | 2017-02-16 08:59 | HHI.PR ---
Objective Vital Signs Date Time Temp Pulse Resp B/P Pulse Ox O2 Delivery O2 Flow Rate FiO2 02/16/17 07:48 98.0 61 18 122/73 95 121/74 124/84 02/16/17 04:06 97.9 60 18 125/70 96 02/15/17 21:34 98.2 56 18 123/78 96 123/84 138/83 02/15/17 16:39 121/78 105/71 108/74 02/15/17 16:36 97.7 60 18 121/78 95 02/15/17 10:45 97.8 68 18 117/73 95 108/78 114/75 Result Diagram: 02/16/17 0739 02/16/17 0739 Objective Remarks no nystag dizzy sitting up walks well although a little off balance with gait but independent Assessment and Plan Assessment and Plan imp likley periph vestibulopathy depression diabetic neuropathy PT ok to dc neurowise mri brain mra c spine mri all ok on statin eeg and bp stand nl Chemo Wang MD Feb 16, 2017 08:59
[2017-02-16] MEDS ORDERED: DIATRIZOATE MEGLUM/DIATRIZOATE SOD 9 ML CUP PO ONE (09:00)
[2017-02-16] MEDS: ESCITALOPRAM OXALATE 10 MG TAB PO SCH (09:01)
[2017-02-16 11:30] VITALS: BP_SYST 114; BP_SYST 116; BP_SYST 133; BP_DIAS 80; BP_DIAS 81; BP_DIAS 82; PULSE 56; RESP 18; TEMP 98.1; O2SAT 97
[2017-02-16] MEDS ORDERED: IOHEXOL 350 MG/ML 10 ML VIAL (for RAD DIAG) IV ONE (11:56)
--- NOTE | 2017-02-16 12:18 | RADRPT ---
EXAM DATE/TIME: 02/16/2017 11:51 [facility] COMPARISON: No previous studies available for comparison. INDICATIONS : Unexplained weight loss. Weakness unsteady gait. IV CONTRAST: 98 cc Omnipaque 350 (iohexol) IV ; Cumulative dose for multiple exams. RADIATION DOSE: 16.93 CTDIvol (mGy) ; Combined studies - Thorax/Abdomen/Pelvis MEDICAL HISTORY : Diabetes mellitus type 2. Hypertension. SURGICAL HISTORY : None. ENCOUNTER: Initial ACUITY: 1 month PAIN SCALE: 0/10 LOCATION: Bilateral abdomen TECHNIQUE: Volumetric scanning of the chest was performed. Using automated exposure control and adjustment of t he mA and/or kV according to patient size, radiation dose was kept as low as reasonably achievable to obtain optimal diagnostic quality images. FINDINGS: LUNGS: There is no consolidation or pneumothorax. No concerning pulmonary nodule is visualized. PLEURA: There is no pleural thickening or pleural effusion. MEDIASTINUM: The heart and great vessels demonstrate no acute abnormality. There is no mediastinal or hilar lymph adenopathy. AXILLAE: Within normal limits. No lymphadenopathy. SKELETAL: Within normal limits for patient age. MISCELLANEOUS: The visualized upper abdominal organs demonstrate no acute abnormality. CONCLUSION: Negative for an acute process.. Giovany Proctor MD FACR on February 16, 2017 at 12:12 Board Certified Radiologist. This report was verified electronically.
--- NOTE | 2017-02-16 12:22 | RADRPT ---
EXAM DATE/TIME: 02/16/2017 11:51 [facility] COMPARISON: No previous studies available for comparison. INDICATIONS : Weight loss, 50 lbs in 30 days IV CONTRAST: 98 cc Omnipaque 350 (iohexol) IV ORAL CONTRAST: Prescribed oral contrast ingested. RADIATION DOSE: 17.29 CTDIvol (mGy) ; Combined studies - Thorax/Abdomen/Pelvis MEDICAL HISTORY : Hypertension. Diabetes mellitus type 2. SURGICAL HISTORY : None. ENCOUNTER: Initial ACUITY: 1 month PAIN SCALE: 0/10 LOCATION: Abdominal/pelvis TECHNIQUE: Volumetric scanning of the abdomen and pelvis was performed. Using automated exposure control and ad justment of the mA and/or kV according to patient size, radiation dose was kept as low as reasonably achievable to obtain optimal diagnostic quality images. FINDINGS: Lung bases are clear. Liver, spleen, pancreas, adrenals and kidneys are unremarkable. Region of the cecum and terminal ileum are normal. There is no ascites or adenopathy appreciated. There is scattered diverticula in the sigmoid colon without diverticulitis. There is no ascites or a denopathy appreciated. Review of bone windows reveals only degenerative changes. CONCLUSION: Negative for an acute process. Giovany Proctor MD FACR on February 16, 2017 at 12:16 Board Certified Radiologist. This report was verified electronically.
--- NOTE | 2017-02-16 12:50 | PD.CONS ---
Provisional Diagnosis Admission Date Feb 14, 2017 at 17:55 [place]. Adjustment disorder with anxiety History of Present Illness Service Psychiatry Consult Requested By Long Primary Care Physician NEVILLE Deras HPI 56-year-old male without psychiatric history, referred for consultation due to a concern of somatizations disorder. Patient does not fit the profile of an individual with somatizations disorder. This 56-year-old man has no history of psychiatric complaints or treatment. He does continue to have very specific complaints about physical problems he is having with vision, ambulation, balance , etc. He denies symptoms of depression but is anxious about his current condition. He denies any suicidal or homicidal ideation, plan or intent. His cognition is completely intact and he has no psychotic symptoms. He is verbally katie for safety. He would simply like a thorough physical evaluation because he to finds his physical symptoms to be bizarre and disturbing. Review of Systems Eyes: COMPLAINS OF: Blurred vision Ears, nose, mouth, throat: COMPLAINS OF: Hearing loss Neurologic: COMPLAINS OF: Headache, Localized weakness, Paresthesias Past Family Social History Coded Allergies: No Known Allergies (Unverified , 02/14/17) Reported Medications Metformin 500 Mg [id number] Mg PO DAILY #30 TAB Ref 0 With a meal 02/14/17 Lisinopril 10 Mg Tab10 Mg PO DAILY #30 TAB Ref 0 02/14/17 Amlodipine 5 Mg Tab5 Mg PO DAILY #30 TAB Ref 0 02/14/17 Current Medications Medications (Trade) Dose Ordered Sig/[place] Route Start Time Stop Time Status Last Admin (NS Flush) 2 ml UNSCH PRN IV FLUSH 02/14/17 14:45 (D50w (Vial) Inj) 50 ml UNSCH PRN IV 02/14/17 18:00 (Glucagon Inj) 1 mg UNSCH PRN OTHER 02/14/17 18:00 (Lexapro) 10 mg DAILY PO 02/15/17 09:00 02/16/17 09:01 (Lipitor) 80 mg HS PO 02/15/17 21:00 02/15/17 21:16 Family History Positive for anxiety. Social History Lives in his own home. Denies a history of alcoholism or substance abuse. Has the support of a significant other. Patient's Strengths (min. 2) Verbal and has access to healthcare. Physical Exam Vital Signs Vital Signs Date Time Temp Pulse Resp B/P Pulse Ox O2 Delivery O2 Flow Rate FiO2 02/16/17 11:30 98.1 56 18 133/81 97 116/80 114/82 02/14/17 17:16 Room Air Mental Status Examination Speech: Unremarkable Orientation: x3 Memory: Unremarkable Thought Process: Organized, Goal Directed Thought Content: Unremarkable Hallucination Type: None Attention and Concentration: Good Suicidal Ideation: No Previous Suicide Attempts: No Homicidal Ideation: No Previous Homicide Attempts: No Insight: Fair Judgment: WNL Affect: Anxious Mood: Anxious Motor Activity: Normal gait Assessment & Plan Problem List: (1) Adjustment disorder with anxiety ICD Code: F43.22 Assessment & Plan Estimated LOS: days as stated above, the patient does not fit the profile of the somatizations disorder. His age and lack of psychiatric history or multiple physical complaints over time does not fit the criteria for somatization disorder. Patient appears legitimately concerned about his bizarre symptoms. Unfortunately this physician does not see a role for psychiatry to play at this time. Marco Braxton MD Feb 16, 2017 12:50
[2017-02-16 13:31] LABS: ANA SCREEN NEG (NEG)
[2017-02-16] MEDS ORDERED: LOVA20TA PO (14:24)
[2017-02-16] MEDS ORDERED: ESCI10TA PO (14:24)
--- NOTE | 2017-02-16 14:27 | HHI.DS ---
Discharge Summary Admission Date Feb 14, 2017 at 17:55 Discharge Date: Feb 16, 2017 Admitting Diagnosis Dizziness, Ataxia, Paresthesias (1) Ageusia ICD Code: R43.2 Diagnosis: Principal (2) Anosmia ICD Code: R43.0 (3) Paresthesia ICD Code: R20.2 Diagnosis: Principal (4) Ataxia ICD Code: R27.0 Diagnosis: Principal (5) Abnormal brain MRI ICD Code: R90.89 Diagnosis: Secondary (6) Type 2 diabetes mellitus ICD Code: E11.9 Diagnosis: Secondary Procedures none Brief History - From Admission Loss of sensation "over all body" - feels numb, loss of smell, loss of taste, 50 pound weight loss in 35 days, sense of imbalance, lethargy - slept for one day, tinnitus, speech feels "heavy", urination is difficult to start and duration of urination is short - unable to feel urination, denies diarrhea or constipation. Last BM 02/14/17 in a.m. Denies pain, dysphagia Blood glucose was 70 at PCPs office and she sent patient to ER PCP: NEVILLE Deras Denies any recent medication changes . CBC/BMP: 02/16/17 0739 02/16/17 0739 Significant Findings Laboratory Tests Test 02/14/17 02/14/17 02/15/17 02/16/17 14:45 17:22 12:36 07:39 Monocytes (%) (Auto) 8.2 % (0.0-8.0) Estimat Glomerular Filtration 58 ML/MIN (>89) 64 ML/MIN (>89) Rate Random Glucose 117 MG/DL (74-106) Urine Mucus FEW /lpf (OCC) Urine Cannabinoids Screen POS (NEG) Aspartate Amino Transf 13 U/L (15-37) (AST/SGOT) Total Protein 8.2 GM/DL (6.0-7.6) Triglycerides Level 225 MG/DL (42-150) Cholesterol Level 272 MG/DL (120-200) LDL Cholesterol 187 MG/DL (0-99) Vitamin B12 Level 1069 PG/ML (193-986) Folate GREATER THAN 20.0 NG/ML (3.1-17.5) Neutrophils (%) (Auto) 72.0 % (16.0-70.0) Imaging Last Impressions Chest CT 02/16/17 0000 Signed Impressions: Service Date/Time: Thursday, February 16, 2017 11:51 - CONCLUSION: Negative for an acute process.. Giovany Proctor MD FACR Neck Magnetic Resonance Angiography 02/15/17 0820 Signed Impressions: Service Date/Time: February 10:55 - CONCLUSION: 1. Normal examination. Waldemar Proctor MD Cervical Spine MRI 02/15/17 08 Signed Impressions: Service Date/Time: February 10:55 - CONCLUSION: Degenerative disc disease with moderate changes at C5-6 and C6-7 as described. No acute bony abnormalities or soft extrusion. Normal appearing spinal cord without significant compression. No evidence of significant nerve root compression. Silvio Bazan MD Brain MRI 02/14/17 1448 Signed Impressions: Service Date/Time: Tuesday, February 14, 2017 16:06 - CONCLUSION: 1. No findings to indicate acute cortical infarct identified. 2. Scattered areas of increased T2 signal in the white matter consistent with mild microvascular ischemic demyelinative change. Waldemar Proctor MD Head CT 02/14/17 1432 Signed Impressions: Service Date/Time: Tuesday, February 14, 2017 15:51 - CONCLUSION: 1. No acute intracranial abnormality identified. Waldemar Proctor MD Chest X-Ray 02/14/17 1432 Signed Impressions: Service Date/Time: Tuesday, February 14, 2017 14:42 - CONCLUSION: 1. Mild elevation of the left hemidiaphragm. 2. Otherwise, no acute cardiopulmonary disease. Denny Brock MD PE at Discharge GENERAL: Well-developed well-nourished. In no acute distress. SKIN: Warm and dry. No lesions noted. HEENT: Normocephalic. Pupils equal and round. Mucous membranes pink and moist. CARDIOVASCULAR: Regular rate and rhythm. No murmur appreciated. RESPIRATORY: No accessory muscle use. Clear to auscultation. Breath sounds equal bilaterally. GASTROINTESTINAL: Abdomen soft, non-tender, nondistended. Bowel sounds x4. MUSCULOSKELETAL: No obvious deformities. No clubbing or cyanosis. No edema. NEUROLOGICAL: Awake and alert. Moves upper and lower extremities spontaneously well when not being tested, although poor effort on strength testing. Normal speech. PSYCHIATRIC: Anxious mood and overwhelmed affect; insight and judgment normal. Hospital Course 56-year-old male with past medical history of DM and HTN who presented for multiple neurologic complaints and weight loss Multiple neurologic deficits: Including paresthesias, dizziness, ataxia and gait imbalance. Possibly secondary to somatization with feelings of being overwhelmed and recent life stressors. Reviewed: Brain MRI with no acute process. Neck MRA normal. C-spine MRI with moderate degenerative changes with no significant spinal cord or nerve root compression. Afebrile with no leukocytosis. Non-orthostatic. EEG with essentially normal appearance. 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 Cleared for DC by neuro. -PT consulted, continue daily PT. -Consult psychiatry, cleared patient for DC. Weight loss: Patient reports 50 pound weight loss over the last month. Possibly secondary to depression, although will rule out malignancy. Check tumor markers and CT chest, abdomen, and pelvis. Diabetes mellitus: Well controlled. Metformin on hold currently. Monitor Accu- Cheks. SSI coverage. Hypertension: Currently well controlled off of amlodipine and lisinopril, continue to hold. Monitor. Hyperlipidemia: Lipid panel reviewed with elevated triglycerides and LDL. Started on statin. DVT prophylaxis: SCDs Discharge Planning Patient is improving, he is noted ambulating. Cleared by neurology and psych for DC. Patient to follow up as OP with PCP and consultants. Pt Condition on Discharge: Stable Discharge Disposition: Discharge Home Discharge Time: > 30 minutes Discharge Instructions DIET: Follow Instructions for: Heart Healthy Diet, Diabetic Diet Activities you can perform: Regular-No Restrictions Follow up Referrals: Neurology - 2 Weeks with Chemo Wang MD PCP Follow-up - 1 Week New Medications: Lovastatin (Lovastatin) 20 Mg Tab 20 MG PO HS Cholesterol Management #30 Ref 0 TAB Escitalopram (Escitalopram) 10 Mg Tab 10 MG PO DAILY Depression Control #30 TAB Continued Medications: Metformin (Metformin) 500 Mg Tab 500 MG PO DAILY With a meal Blood Sugar Management #30 Ref 0 TAB Discontinued Medications: Amlodipine (Amlodipine) 5 Mg Tab 5 MG PO DAILY Blood Pressure Management #30 Ref 0 TAB Lisinopril (Lisinopril) 10 Mg Tab 10 MG PO DAILY #30 Ref 0 TAB Marguerite Barger MD Feb 16, 2017 14:27
[2017-02-16 14:48] LABS: RAPID PLASMA REAGIN SCREEN NON-REACTIVE (NON-REACTVE)
[2017-02-20 22:06] LABS: ALPHA 1 GLOBULIN 0.21 GM/DL (0.11-0.29); ALPHA 2 GLOBULIN 0.75 GM/DL (0.22-1.00); BETA GLOBULINS (SPE) 0.84 GM/DL (0.53-1.03)
[2017-02-21 16:15] LABS: VITAMIN B6 15.2 ng/mL (2.1-21.7)
== END 2017-02-16 18:16 | disposition home or self-care (01) ==
LOC: NEPC 14:18 → NEDA 17:55 → NEPGCP 19:09
PROVIDERS: ADMIT Hospitalist; ATTEND Hospitalist
DX: R42 Dizziness and giddiness (principal); R43.2 Parageusia; R43.0 Anosmia; R20.9 Unspecified disturbances of skin sensation; E11.40 Type 2 diabetes mellitus with diabetic neuropathy, unspecified; E78.5 Hyperlipidemia, unspecified; I10 Essential (primary) hypertension; F32.9 Major depressive disorder, single episode, unspecified; F43.22 Adjustment disorder with anxiety; R90.89 Other abnormal findings on diagnostic imaging of central nervous system; R63.4 Abnormal weight loss; Z68.26 Body mass index [BMI] 26.0-26.9, adult; Z79.84 Long term (current) use of oral hypoglycemic drugs
CPT/HCPCS: 70450; 70548; 70551; 71010; 71260; 72141; 74177; 80048; 80053; 80061; 80307; 81001; 82105; 82140; 82378; 82550; 82607; 82746; 82948; 83921; 84165; 84207; 84425; 84443; 84450; 84460; 85025; 85610; 85652; 85730; 86038; 86140; 86301; 86430; 86592; 93005; 95819; 96372; 97162; 99285; A9579; G0378; G8987; G8988; J1815; Q9963; Q9967

== ENCOUNTER 2017-11-24 17:14 | Emergency (ER) | payer OTHER ==
[~2017-11-24 17:14] MED LIST changes: -AMLO5TAB22 PO; +ESCI10TA PO; -LISI-360 PO; +LOVA20TA PO; -METF500 PO; +METF500T PO
[2017-11-24 17:26] VITALS: BP 114/64; PULSE 97; RESP 16; TEMP 98.9; O2SAT 93
[2017-11-24 18:13] VITALS: BP 123/72; PULSE 93; RESP 19; O2SAT 94
--- NOTE | 2017-11-24 18:41 | PD ---
HPI Chief Complaint: Alcohol/Drug Intoxication Time Seen by Provider: 17:52 Travel History International Travel<30 days: No Contact w/Intl Traveler<30days: No Traveled to known affect area: No History of Present Illness HPI This patient is brought in by police. His a hospice today and he was drinking excessively in grief. Neighbors called police because of a disturbance. He admits to drinking heavily. He denies drug use or intentional overdose. He denies feeling suicidal. He's been drinking a lot in the last year. Severity is moderate. No alleviating factors. He agrees to psychiatric screening. Symptoms exacerbated by his 's . PFSH Past Medical History Depression: Yes Diabetes: Yes Patient Takes Glucophage: Yes Hypertension: Yes Tetanus Vaccination: Unknown Influenza Vaccination: No Past Surgical History AICD: No Joint Replacement: No Oral Surgery: Yes (TONSILECTOMY) Pacemaker: No Tonsillectomy: Yes Social History Alcohol Use: Yes (1/2 BOTTLE VODKA ) Tobacco Use: No Substance Use: No Allergies-Medications (Allergen,Severity, Reaction): Coded Allergies: No Known Allergies (Unverified Adverse Reaction, Unknown, 11/24/17) Reported Meds & Prescriptions Reported Meds & Active Scripts Active Escitalopram (Escitalopram Oxalate) 10 Mg Tab 10 Mg PO DAILY Lovastatin 20 Mg Tab 20 Mg PO HS Reported Metformin (Metformin HCl) 500 Mg Tab 500 Mg PO DAILY With a meal Review of Systems General / Constitutional: No: Fever Eyes: No: Visual changes HENT: No: Headaches Cardiovascular: No: Chest Pain or Discomfort Respiratory: No: Shortness of Breath Gastrointestinal: No: Abdominal Pain Genitourinary: No: Dysuria Musculoskeletal: No: Pain Skin: No Rash Neurologic: No: Weakness Psychiatric: Positive: Depression, Substance Abuse Endocrine: No: Polydipsia Hematologic/Lymphatic: No: Easy Bruising Physical Exam Narrative GENERAL: Well-nourished, well-developed patient in no apparent distress. SKIN: Focused skin assessment reveals no rash and nodules. Skin is Warm and dry. HEAD: Atraumatic. Normocephalic. EYES: Pupils equal and round. No scleral icterus. No injection or drainage. ENT: No nasal bleeding or discharge. Mucous membranes pink and moist. NECK: Trachea midline. No JVD. CARDIOVASCULAR: Regular rate and rhythm. No murmur appreciated. RESPIRATORY: No accessory muscle use. Clear to auscultation. Breath sounds equal bilaterally. GASTROINTESTINAL: Abdomen soft, non-tender, nondistended. Hepatic and splenic margins not palpable. MUSCULOSKELETAL: No obvious deformities. No clubbing. No cyanosis. No edema. NEUROLOGICAL: Awake and alert. No obvious cranial nerve deficits. Motor grossly within normal limits. Normal speech. PSYCHIATRIC: Depressed mood and flat affect; insight and judgment impaired at present . Data Data Last Documented VS Vital Signs Date Time Temp Pulse Resp B/P (MAP) Pulse Ox O2 Delivery O2 Flow Rate FiO2 11/24/17 18:13 93 19 123/72 (89) 94 Room Air 11/24/17 17:26 98.9 Orders Orders Complete Blood Count With Diff (11/24/17 18:31) Comprehensive Metabolic Panel (11/24/17 18:31) Thyroid Stimulating Hormone (11/24/17 18:31) Iv Access Insert/Monitor (11/24/17 18:31) Psych Screen (11/24/17 18:31) Drug Screen, Random Urine (11/24/17 18:31) Alcohol (Ethanol) (11/24/17 18:31) Labs Laboratory Tests Test 11/24/17 18:35 White Blood Count 6.8 TH/MM3 Red Blood Count 3.95 MIL/MM3 Hemoglobin 15.8 GM/DL Hematocrit 42.7 % Mean Corpuscular Volume 108.2 FL Mean Corpuscular Hemoglobin 39.9 PG Mean Corpuscular Hemoglobin Concent 36.9 % Red Cell Distribution Width 12.6 % Platelet Count 157 TH/MM3 Mean Platelet Volume 8.8 FL Neutrophils (%) (Auto) 59.2 % Lymphocytes (%) (Auto) 27.2 % Monocytes (%) (Auto) 11.7 % Eosinophils (%) (Auto) 1.1 % Basophils (%) (Auto) 0.8 % Neutrophils # (Auto) 4.0 TH/MM3 Lymphocytes # (Auto) 1.9 TH/MM3 Monocytes # (Auto) 0.8 TH/MM3 Eosinophils # (Auto) 0.1 TH/MM3 Basophils # (Auto) 0.1 TH/MM3 CBC Comment DIFF FINAL Differential Comment Blood Urea Nitrogen 18 MG/DL Creatinine 1.53 MG/DL Random Glucose 131 MG/DL Total Protein 7.8 GM/DL Albumin 3.7 GM/DL Calcium Level 9.1 MG/DL Alkaline Phosphatase 107 U/L Aspartate Amino Transf (AST/SGOT) 248 U/L Alanine Aminotransferase (ALT/SGPT) 187 U/L Total Bilirubin 0.4 MG/DL Sodium Level 142 MEQ/L Potassium Level 3.5 MEQ/L Chloride Level 104 MEQ/L Carbon Dioxide Level 25.3 MEQ/L Anion Gap 13 MEQ/L Estimat Glomerular Filtration Rate 47 ML/MIN Thyroid Stimulating Hormone 3rd Gen 1.520 uIU/ML Ethyl Alcohol Level 322 MG/DL [facility] Medical Decision Making Medical Screen Exam Complete: Yes Emergency Medical Condition: Yes Medical Record Reviewed: Yes Differential Diagnosis Alcohol intoxication, depression, adjustment disorder with depressed mood, persistent depressive disorder Narrative Course I have reviewed the patient's electronic medical record. Ordered a medical clearance workup to include IV placement and lab studies Patient agrees to psychiatric screening which I have ordered Alcohol level is 322 CBC and metabolic profiles reviewed LFTs have mild elevation as expected Patient's been waiting here 4-5 hours and wants to go home. He is sobered up significantly He is suffering grief reaction but is not suicidal and does not seem a danger to himself. He seems genuine He does not want to wait any longer for psychiatric screening which could be many more hours I'm going to discharge him home and he says that he will return if he has any psychiatric or otherwise worsening in any way Diagnosis Primary Impression: Alcohol intoxication Qualified Codes: F10.929 - Alcohol use, unspecified with intoxication, unspecified Additional Impressions: Grief reaction Elevated LFTs Additional Instructions: The patient was advised to follow up with their physician and return if they worsen. Cut back alcohol drinking Return for any suicidal thoughts Med/Other Pt SpecificInfo: Other Disposition: DISCHARGE HOME Condition: Stable Watson Haynes MD Nov 24, 2017 18:41
[2017-11-24 19:17] LABS: BASOPHIL # 0.1 TH/MM3 (0-0.2); BASOPHIL % 0.8 % (0.0-2.0); EOSINOPHIL # 0.1 TH/MM3 (0-0.4); EOSINOPHIL % 1.1 % (0.0-4.0); HEMATOCRIT 42.7 % (39.0-51.0); HEMOGLOBIN 15.8 GM/DL (13.0-17.0); LYMPH % 27.2 % (9.0-44.0); LYMPHOCYTE # 1.9 TH/MM3 (1.0-4.8); MEAN CELL VOLUME 108.2 FL (80.0-100.0); MEAN CORPUSCULAR HEMOGLOBIN 39.9 PG (27.0-34.0); MEAN PLATELET VOLUME 8.8 FL (7.0-11.0); MONO % 11.7 % (0.0-8.0); MONOCYTE # 0.8 TH/MM3 (0-0.9); NEUT % 59.2 % (16.0-70.0); PLATELET COUNT 157 TH/MM3 (150-450); RED BLOOD COUNT 3.95 MIL/MM3 (4.50-5.90); RED CELL DISTRIBUTION WIDTH 12.6 % (11.6-17.2); WHITE BLOOD COUNT 6.8 TH/MM3 (4.0-11.0)
[2017-11-24 19:19] LABS: MEAN CORPUSCULAR HGB CONC 36.9 % (32.0-36.0)
[2017-11-24 20:37] LABS: ALT (GPT) 187 U/L (12-78)
[2017-11-24 20:44] LABS: ALBUMIN 3.7 GM/DL (3.4-5.0); AST (GOT) 248 U/L (15-37); BICARBONATE 25.3 MEQ/L (21.0-32.0); BLOOD UREA NITROGEN 18 MG/DL (7-18); CALCIUM 9.1 MG/DL (8.5-10.1); CHLORIDE 104 MEQ/L (98-107); CREATININE 1.53 MG/DL (0.60-1.30); GLOMERULAR FILTRATION RATE 47 ML/MIN (>89); GLUCOSE,RANDOM 131 MG/DL (74-106); SODIUM (NA) 142 MEQ/L (136-145)
[2017-11-24 20:47] LABS: ALKALINE PHOSPHATASE 107 U/L (45-117); TOTAL BILIRUBIN ADULT 0.4 MG/DL (0.2-1.0); TOTAL PROTEIN 7.8 GM/DL (6.4-8.2)
== END 2017-11-25 08:23 | disposition home or self-care (01) ==
LOC: NEPD 17:14
DX: F10.129 Alcohol abuse with intoxication, unspecified (principal); F43.20 Adjustment disorder, unspecified; R79.89 Other specified abnormal findings of blood chemistry; I10 Essential (primary) hypertension; E11.9 Type 2 diabetes mellitus without complications; F32.9 Major depressive disorder, single episode, unspecified; Z79.899 Other long term (current) drug therapy
CPT/HCPCS: 80053; 80307; 84443; 85025; 99283